=== PATIENT | male | born 1960 | race Caucasian/White ===

== ENCOUNTER → 2017-12-29 | Outpatient (CLI) | payer MEDICARE | END | disposition home or self-care (01) | LOC: RAH 07:48 | PROVIDERS: ATTEND Internal Medicine | DX: M47.12 Other spondylosis with myelopathy, cervical region (principal); R29.2 Abnormal reflex | CPT/HCPCS: 72141 ==

== ENCOUNTER 2020-07-07 17:03 | Emergency (ER) | payer MEDICARE ==
[2020-07-07 17:51] LABS: BASOPHILS % (AUTO) 0.3 % (0.0-5.0); EOSINOPHILS % (AUTO) 1.2 % (0.0-8.0); HEMATOCRIT 45.2 % (42-54); LYMPHOCYTES % (AUTO) 12.4 % (21.0-51.0); MEAN CORPUSCULAR HEMOGLOBIN 30.9 pg (27.0-33.0); MEAN CORPUSCULAR HGB CONC 34.1 g/dL (32.0-36.0); MEAN CORPUSCULAR VOLUME 90.8 fL (79-99); MONOCYTES % (AUTO) 4.5 % (3.0-13.0); NEUTROPHILS % (AUTO) 81.2 % (40.0-77.0); PLATELET COUNT (AUTO) 277 K/uL (130-400); RED BLOOD CELL COUNT(AUTO) 4.98 MIL/uL (4.50-6.20); RED CELL DISTRIBUTION WIDTH 12.1 % (11.0-15.5); WHITE BLOOD COUNT (AUTO) 7.5 K/uL (4.8-10.8)
[2020-07-07 18:05] LABS: CREATININE 1.2 mg/dL (0.5-1.5); POTASSIUM 3.6 mmol/L (3.5-5.1)
[2020-07-07 18:10] LABS: ALBUMIN 4.1 g/dL (3.5-5.0); BILIRUBIN,TOTAL 0.7 mg/dL (0.2-1.0); TOTAL PROTEIN, SERUM 7.6 g/dL (6.0-8.3)
[2020-07-07 19:53] LABS: APPEARANCE,URINE Clear (CLEAR); BILIRUBIN,URINE Negative (NEGATIVE); COLOR,URINE Yellow (YELLOW); GLUCOSE, URINE (UA) TRACE mg/dL (NEGATIVE); KETONES,URINE Trace mg/dL (NEGATIVE); LEUKOCYTE ESTERASE ,URINE Negative (NEGATIVE); NITRATE,URINE Negative (NEGATIVE); OCCULT BLOOD,URINE Negative (NEGATIVE); PROTEIN,URINE Negative (NEGATIVE)
[2020-07-07 20:06] LABS: BACTERIA,URINE Few /HPF (None Seen); RBC,URINE None Seen /HPF (0-1); SQUAMOUS EPITHELIAL CELL,UR None Seen /HPF (0-2); WBC,URINE 0-1 /HPF (0-1)
== END 2020-07-07 20:12 | disposition home or self-care (01) ==
LOC: EDH 17:03
DX: R55 Syncope and collapse (principal); R10.13 Epigastric pain; G20 Parkinson's disease; Z87.891 Personal history of nicotine dependence
CPT/HCPCS: 36415; 70450; 80053; 81001; 83690; 84484; 85025; 93005

== ENCOUNTER → 2021-11-17 | Outpatient (CLI) | payer MEDICARE | END | disposition home or self-care (01) | LOC: RAH 12:57 | PROVIDERS: ATTEND Internal Medicine | DX: M16.12 Unilateral primary osteoarthritis, left hip (principal); M70.62 Trochanteric bursitis, left hip; J84.10 Pulmonary fibrosis, unspecified; K44.9 Diaphragmatic hernia without obstruction or gangrene; K76.0 Fatty (change of) liver, not elsewhere classified; I25.10 Atherosclerotic heart disease of native coronary artery without angina pectoris; M47.815 Spondylosis without myelopathy or radiculopathy, thoracolumbar region | CPT/HCPCS: 71250; 73502 ==

== ENCOUNTER → 2021-11-27 | Outpatient (CLI) | payer MEDICARE | END | disposition home or self-care (01) | LOC: RAH 11:05 | PROVIDERS: ATTEND Internal Medicine | DX: M25.552 Pain in left hip (principal); K44.9 Diaphragmatic hernia without obstruction or gangrene | CPT/HCPCS: 73721 ==